=== PATIENT | female | born 1985 | race Caucasian/White ===

== ENCOUNTER 2016-06-18 21:54 | Inpatient (IN) | payer OTHER ==
[~2016-06-18] VITALS: Ht 154.9 cm; Wt 110.9 kg
[~2016-06-18 21:54] MED LIST: ADDERALL15 MG PO; ADDERALL30 MG PO; ADVIL,NUPRIN,M200 MG PO; AMOXICILLIN500 MG PO; AMPHETAMINE SAL30 MG PO; ENDOCET 5-3251 EACH PO; GABAPENTIN100 MG PO; GABAPENTIN300 MG PO; HYDROCODON-ACE1 EAC7 PO; IBUPROFEN800 MG PO; KEFLEX500 MG PO; MIRENA52 MG IY; MOBIC7.5 MG PO; MOTRIN800 MG PO; NORCO 10/3251 TABLET PO; NORCO 5/3251 TABLET PO; ONDANSETRON ODT4 MG; ORTHO TRI-CYCL1 EACH PO; OXYCODONE HCL5 MG PO; PAXIL20 MG PO; PEN-VEE K,VEET500 MG PO; PERCOCET 10/1 TABLET PO; PHENTERMINE H37.5 MG PO; PREDNISONE20 MG PO; PRENATAL VITAM1 EAC3 PO; PROMETHAZINE HC25 M1 PO; Percocet 5/325,Endoc PO; REGLAN10 MG PO; RHOGAM IM; TORADOL10 MG PO; TYLENOL REGULA325 MG PO; VENTOLIN HFA18 GM IH; VICODIN 5-3001 EACH PO; VOLTAREN 1% GE100 GM TP; Vibramycin, Doryx PO; ZITHROMAX Z-PA250 MG PO; ZOFRAN ODT4 MG PO; ZOFRAN ODT8 MG PO
[2016-06-18 22:34] LABS: MCH 26.7 PG (29.0-34.0); MCHC 31.1 G/DL (30.0-36.0); MCV 85.6 FL (83-99); MEAN PLAT.VOLUME 10.5 uM^3 (9.5-12.4); PLATELET COUNT 240 K/uL (156-360); RBC DIS.WIDTH-CV 15.8 % (11.8-14.6); RED BLOOD COUNT 5.14 M/uL (3.80-5.20); WHITE BLOOD COUNT 7.4 K/uL (4.1-10.2)
[2016-06-18 22:43] LABS: CHLORIDE 103 mEq/L (99-109); POTASSIUM 3.2 mEq/L (3.7-5.4); SODIUM 137 mEq/L (136-147)
[2016-06-18 22:45] LABS: GLUCOSE 160 mg/dL (70-99)
[2016-06-18 22:46] LABS: ANION GAP 10 MEQ/L (2-14)
[2016-06-18 22:47] LABS: TOTAL BILIRUBIN 6.2 mg/dL (0.0-1.0)
[2016-06-18 22:49] LABS: ALKALINE PHOSPHATASE 338 IU/L (3-129); GFR ESTIMATE (CALCULATED) > 59 mL/min/
[2016-06-18 22:50] LABS: UREA NITROGEN (BUN) 6 mg/dL (9-23)
[2016-06-18 22:52] LABS: LIPASE 34 U/L (1.0-51.0)
[2016-06-18 22:58] LABS: QUANTITATIVE HCG < 4.0 MIU/ML
[2016-06-18 23:08] LABS: ADD MIUA? NO; BILIRUBIN MODERATE; BLOOD NEGATIVE; COLOR AMBER ((YELLOW)); GLUCOSE (STRIP) NEGATIVE; KETONES NEGATIVE; LEUKOCYTES NEGATIVE; NITRITE NEGATIVE; PROTEIN (STRIP) NEGATIVE; SPECIFIC GRAVITY 1.018 (1.000-1.030); UCUL ADDED? NO
[2016-06-18 23:29] LABS: ICTOTEST POSITIVE
[2016-06-19] MEDS ORDERED: BUPROPION HCL75 MG PO (01:16)
[2016-06-19] MEDS ORDERED: DICLOFENAC SOD100 G1 TP (01:18)
[2016-06-19] MEDS ORDERED: TYLENOL EXTRA500 MG PO (01:19)
[2016-06-19] MEDS ORDERED: IMITREX50 MG PO ×2 (01:20→09:25)
[2016-06-19 02:21] LABS: SERUM ETHYL ALCOHOL < 10 mg/dL
[2016-06-19 02:23] LABS: DIRECT BILIRUBIN 4.9 mg/dL (0.0-0.3)
[2016-06-19 04:04] VITALS: BP 117/69
[2016-06-19 06:44] LABS: INTER. NORMALIZED RATIO 1.1; PROTHROMBIN TIME 10.7 (9.2-11.2); PTT 29.6 (25-32)
[2016-06-19 08:30] VITALS: BP 112/60
[2016-06-19 10:28] LABS: ANTI-HEPATITIS A VIRUS (IGM) Nonreactive; HAV INDEX 0.18
[2016-06-19 10:29] LABS: ANTI-HEPATITIS B CORE (IGM) Nonreactive; HBC IgM INDEX 0.11
[2016-06-19 10:30] LABS: HPCA INDEX 10.95
[2016-06-19 11:24] VITALS: BP 117/88
[2016-06-19 11:27] LABS: EOSINOPHIL (%) 5.6 % (0-5); EOSINOPHIL COUNT 0.3 K/uL (0-0.3); HEMATOCRIT 39.6 % (36.0-46.0); IMMATURE GRANULOCYTE (%) 0.4 % (0.0-0.7); INSTRUMENT ABS NEUTROPHIL CT 2.6 K/uL; LYMPHOCYTE COUNT 1.6 K/uL (1.0-2.8); MCH 27.4 PG (29.0-34.0); MCHC 31.6 G/DL (30.0-36.0); MCV 86.7 FL (83-99); MEAN PLAT.VOLUME 10.9 uM^3 (9.5-12.4); MONOCYTE (%) 10.8 % (3-12); MONOCYTE COUNT 0.6 K/uL (0-0.8); NEUTROPHIL (%) 50.7 % (45-76); NEUTROPHIL COUNT 2.6 K/uL (1.8-6.4); PLATELET COUNT 191 K/uL (156-360); RBC DIS.WIDTH-CV 16.1 % (11.8-14.6); RBC DIS.WIDTH-SD 50.3 % (39-53); RED BLOOD COUNT 4.57 M/uL (3.80-5.20); WHITE BLOOD COUNT 5.2 K/uL (4.1-10.2)
[2016-06-19 12:25] LABS: ALKALINE PHOSPHATASE 312 IU/L (3-129); ANION GAP 7 MEQ/L (2-14); CHLORIDE 104 MEQ/L (99-109); GFR ESTIMATE (CALCULATED) > 59 mL/min/; GLUCOSE 157 mg/dL (70-99); POTASSIUM 3.8 MEQ/L (3.7-5.4); SAMPLE HEMOLYSIS CHECK 0; SAMPLE ICTERIC CHECK 2; SAMPLE LIPEMIA CHECK 0; SODIUM 137 MEQ/L (136-147); TOTAL BILIRUBIN 7.2 MG/DL (0.0-1.0); UREA NITROGEN (BUN) 4 mg/dL (9-23)
[2016-06-19 12:39] LABS: AMPHETAMINES QUANT VALUE 0 NG/ML; BARBITUATES QUANT VALUE 0 NG/ML; BENZODIAZEPINES QUANT VALUE 0 NG/ML; BENZODIAZEPINES, URINE SCREEN Negative (200 ng/mL); MARIJUANA QUANT VALUE 0 NG/ML; PHENCYCLIDINE QUANT VALUE 0 NG/ML
[2016-06-19 15:28] VITALS: BP 97/55
[2016-06-19 23:27] VITALS: BP 112/71
[2016-06-20 05:11] LABS: EOSINOPHIL (%) 4.7 % (0-5); EOSINOPHIL COUNT 0.3 K/uL (0-0.3); HEMATOCRIT 37.1 % (36.0-46.0); IMMATURE GRANULOCYTE (%) 0.6 % (0.0-0.7); INSTRUMENT ABS NEUTROPHIL CT 2.4 K/uL; LYMPHOCYTE COUNT 2.1 K/uL (1.0-2.8); MCH 26.9 PG (29.0-34.0); MCV 86.9 FL (83-99); MEAN PLAT.VOLUME 11.1 uM^3 (9.5-12.4); MONOCYTE (%) 9.3 % (3-12); MONOCYTE COUNT 0.5 K/uL (0-0.8); NEUTROPHIL (%) 45.1 % (45-76); NEUTROPHIL COUNT 2.4 K/uL (1.8-6.4); PLATELET COUNT 174 K/uL (156-360); RBC DIS.WIDTH-CV 16.3 % (11.8-14.6); RED BLOOD COUNT 4.27 M/uL (3.80-5.20); WHITE BLOOD COUNT 5.4 K/uL (4.1-10.2)
[2016-06-20 05:26] LABS: INTER. NORMALIZED RATIO 1.1; PROTHROMBIN TIME 10.9 (9.2-11.2)
[2016-06-20 05:39] LABS: ALKALINE PHOSPHATASE 249 IU/L (3-129); ANION GAP 5 MEQ/L (2-14); CHLORIDE 105 MEQ/L (99-109); DIRECT BILIRUBIN 5.1 mg/dL (0.0-0.3); GFR ESTIMATE (CALCULATED) > 59 mL/min/; GLUCOSE 122 mg/dL (70-99); POTASSIUM 3.8 MEQ/L (3.7-5.4); SAMPLE HEMOLYSIS CHECK 0; SAMPLE ICTERIC CHECK 2; SAMPLE LIPEMIA CHECK 0; SODIUM 139 MEQ/L (136-147); UREA NITROGEN (BUN) 4 mg/dL (9-23)
[2016-06-20 08:16] VITALS: BP 112/70
[2016-06-20 12:16] LABS: Estimated Average Glucose 131 mg/dL (70-123); HEMOGLOBIN A1c (GLYCOHEMOGLOB) 6.2 % HGB (Below 5.7)
[2016-06-20 15:21] VITALS: BP 113/71
[2016-06-20 23:32] VITALS: BP 113/72
[2016-06-21 05:28] LABS: HEMATOCRIT 39.8 % (36.0-46.0); MCH 27.1 PG (29.0-34.0); MCHC 31.2 G/DL (30.0-36.0); MCV 86.9 FL (83-99); MEAN PLAT.VOLUME 11.6 uM^3 (9.5-12.4); PLATELET COUNT 183 K/uL (156-360); RBC DIS.WIDTH-CV 16.7 % (11.8-14.6); RBC DIS.WIDTH-SD 53.2 % (39-53); RED BLOOD COUNT 4.58 M/uL (3.80-5.20); WHITE BLOOD COUNT 6.4 K/uL (4.1-10.2)
[2016-06-21 05:41] LABS: ALKALINE PHOSPHATASE 267 IU/L (3-129); ANION GAP 8 MEQ/L (2-14); CHLORIDE 102 MEQ/L (99-109); GFR ESTIMATE (CALCULATED) > 59 mL/min/; GLUCOSE 123 mg/dL (70-99); NON-HDL CHOLESTEROL 181 mg/dL (Desirable<160); POTASSIUM 4.2 MEQ/L (3.7-5.4); SAMPLE HEMOLYSIS CHECK 0; SAMPLE ICTERIC CHECK 2; SAMPLE LIPEMIA CHECK 0; SODIUM 138 MEQ/L (136-147); TOTAL CHOLESTEROL 186 mg/dL (Desirable<200); TRIGLYCERIDES 450 MG/DL (Normal: <150); UREA NITROGEN (BUN) 5 mg/dL (9-23)
[2016-06-21 05:51] LABS: HDL CHOLESTEROL 5 MG/DL (Desirable>=50)
[2016-06-21 07:25] VITALS: BP 114/66
[2016-06-21 15:17] VITALS: BP 116/76
[2016-06-21 16:46] LABS: ALPHA-1-ANTITRYPSIN+ 210 mg/dL (83-199)
[2016-06-21 18:33] LABS: ANTI-SMOOTH MUSCLE (Actin)+ <20 U (<20); MITOCHONDRIAL (M2) ANTIBODIES+ <=20.0 U (<=20.0)
[2016-06-22 00:09] VITALS: BP 122/76
[2016-06-22 07:11] VITALS: BP 113/64
[2016-06-22 08:30] LABS: HCV RNA (LOG IU/mL) 6.32 (<1.18)
[2016-06-22] MEDS ORDERED: REGLAN5 MG PO (09:40)
== END 2016-06-22 13:36 | disposition home or self-care (01) | DRG 442 ==
LOC: RME 21:54 → EME 21:54 → EDOF 06-19 03:05 → 3EAST 06-19 03:05
PROVIDERS: Hospitalist; Internal Medicine; Internal Medicine Gastroenterology
DX: B17.10 Acute hepatitis C without hepatic coma (principal); K70.10 Alcoholic hepatitis without ascites; J45.909 Unspecified asthma, uncomplicated; G89.29 Other chronic pain; F32.9 Major depressive disorder, single episode, unspecified; M79.7 Fibromyalgia; G43.909 Migraine, unspecified, not intractable, without status migrainosus; F17.200 Nicotine dependence, unspecified, uncomplicated; E66.01 Morbid (severe) obesity due to excess calories; E87.6 Hypokalemia; R73.9 Hyperglycemia, unspecified; E78.5 Hyperlipidemia, unspecified; F14.10 Cocaine abuse, uncomplicated; F11.10 Opioid abuse, uncomplicated; Z91.410 Personal history of adult physical and sexual abuse; Z68.42 Body mass index [BMI] 45.0-49.9, adult
CPT/HCPCS: 74177; 80053; 80061; 80074; 80306 90; 81003; 82103 90; 82248; 82390; 82728; 83036; 83516 90; 83690; 84702; 85025; 85027; 85610; 85651; 85730; 86038; 86256 90; 87177; 87522 90; 99202; 99281; 99285; G0480; J1885; J2270; J2405; J2765; J3010; J7030; S0028

== ENCOUNTER 2016-10-05 10:47 | Emergency (ER) | payer OTHER ==
[~2016-10-05] VITALS: Ht 157.5 cm; Wt 104.5 kg
[~2016-10-05 10:47] MED LIST changes: +BUPROPION HCL75 MG PO; +DICLOFENAC SOD100 G1 TP; +IMITREX50 MG PO; +REGLAN5 MG PO; +TYLENOL EXTRA500 MG PO
[2016-10-05 13:15] VITALS: BP 102/82
== END 2016-10-05 13:16 | disposition home or self-care (01) ==
LOC: EME 10:47
DX: S00.83XA Contusion of other part of head, initial encounter (principal); S70.02XA Contusion of left hip, initial encounter; Y04.8XXA Assault by other bodily force, initial encounter; Y07.03 Male partner, perpetrator of maltreatment and neglect; M79.7 Fibromyalgia; J45.909 Unspecified asthma, uncomplicated; F17.200 Nicotine dependence, unspecified, uncomplicated
CPT/HCPCS: 73502; 99281; 99284

== ENCOUNTER 2017-01-08 13:02 | Emergency (ER) | payer OTHER ==
[~2017-01-08] VITALS: Ht 157.5 cm; Wt 99.7 kg
[2017-01-08 14:50] LABS: HEMATOCRIT 39.9 % (36.0-46.0); MCH 27.2 PG (29.0-34.0); MCHC 32.1 G/DL (30.0-36.0); MCV 84.7 FL (83-99); MEAN PLAT.VOLUME 9.8 uM^3 (9.5-12.4); PLATELET COUNT 362 K/uL (156-360); RBC DIS.WIDTH-CV 13.6 % (11.8-14.6); RBC DIS.WIDTH-SD 42.1 % (39-53); RED BLOOD COUNT 4.71 M/uL (3.80-5.20); WHITE BLOOD COUNT 12.4 K/uL (4.1-10.2)
[2017-01-08 15:02] LABS: CHLORIDE 103 mEq/L (99-109); SODIUM 138 mEq/L (136-147)
[2017-01-08 15:05] LABS: GLUCOSE 96 mg/dL (70-99)
[2017-01-08 15:06] LABS: ANION GAP 11 MEQ/L (2-14)
[2017-01-08 15:07] LABS: TOTAL BILIRUBIN 0.5 mg/dL (0.0-1.0)
[2017-01-08 15:08] LABS: ALKALINE PHOSPHATASE 107 IU/L (3-129); GFR ESTIMATE (CALCULATED) > 59 mL/min/
[2017-01-08 15:09] LABS: UREA NITROGEN (BUN) 10 mg/dL (9-23)
[2017-01-08 15:17] LABS: QUANTITATIVE HCG < 4.0 MIU/ML
[2017-01-08] MEDS ORDERED: TRAMADOL HCL50 MG PO (15:29)
[2017-01-08] MEDS ORDERED: LEVAQUIN750 MG PO (15:29)
[2017-01-08] MEDS ORDERED: MOTRIN600 MG PO (15:30)
[2017-01-08] MEDS ORDERED: TYLENOL WITH C1 EACH PO (15:38)
[2017-01-08 15:40] VITALS: BP 98/66
== END 2017-01-08 15:48 | disposition home or self-care (01) ==
LOC: EME 13:02
PROVIDERS: Physician Assistant
DX: J18.9 Pneumonia, unspecified organism (principal); F17.200 Nicotine dependence, unspecified, uncomplicated; J45.909 Unspecified asthma, uncomplicated; F32.9 Major depressive disorder, single episode, unspecified; M79.7 Fibromyalgia
CPT/HCPCS: 71020; 80053; 84702; 85027; 85379; 93005; 99281; 99285; J3010

== ENCOUNTER 2017-02-24 08:19 | Emergency (ER) | payer OTHER ==
[~2017-02-24] VITALS: Ht 157.5 cm; Wt 108.1 kg
[~2017-02-24 08:19] MED LIST changes: +LEVAQUIN750 MG PO; +MOTRIN600 MG PO; +TRAMADOL HCL50 MG PO; +TYLENOL WITH C1 EACH PO
[2017-02-24 09:33] LABS: HEMATOCRIT 36.6 % (36.0-46.0); HEMOGLOBIN 11.9 G/DL (11.9-15.5); MCH 27.3 PG (29.0-34.0); MCHC 32.5 G/DL (30.0-36.0); MCV 83.9 FL (83-99); PLATELET COUNT 247 K/uL (156-360); RBC DIS.WIDTH-CV 14.3 % (11.8-14.6); RBC DIS.WIDTH-SD 44.1 % (39-53); RED BLOOD COUNT 4.36 M/uL (3.80-5.20); WHITE BLOOD COUNT 14.6 K/uL (4.1-10.2)
[2017-02-24 09:45] LABS: CHLORIDE 102 mEq/L (99-109); POTASSIUM 3.6 mEq/L (3.7-5.4); SODIUM 135 mEq/L (136-147)
[2017-02-24 09:47] LABS: GLUCOSE 125 mg/dL (70-99)
[2017-02-24 09:51] LABS: CREATININE 0.8 mg/dL (0.6-1.3); GFR ESTIMATE (CALCULATED) > 59 mL/min/
[2017-02-24 09:52] LABS: UREA NITROGEN (BUN) 9 mg/dL (9-23)
[2017-02-24 09:56] LABS: TROP-I INTERPRETATION NEGATIVE; TROPONIN-I < 0.01 ng/mL (0.0-0.30)
[2017-02-24 09:59] LABS: QUANTITATIVE HCG < 4.0 MIU/ML
[2017-02-24] MEDS ORDERED: ZOFRAN ODT4 MG PO (11:15)
[2017-02-24] MEDS ORDERED: NARCAN4 MG NS (11:21)
[2017-02-24 12:04] VITALS: BP 101/58
== END 2017-02-24 12:18 | disposition home or self-care (01) ==
LOC: EME 08:19
PROVIDERS: Nurse Practitioner Family
DX: T40.1X1A Poisoning by heroin, accidental (unintentional), initial encounter (principal); F14.10 Cocaine abuse, uncomplicated; R00.0 Tachycardia, unspecified; R11.2 Nausea with vomiting, unspecified; F17.200 Nicotine dependence, unspecified, uncomplicated; Z91.018 Allergy to other foods; J45.909 Unspecified asthma, uncomplicated; M79.7 Fibromyalgia
CPT/HCPCS: 71020; 80048; 84484; 84702; 85027; 93005; 99281; 99285; J2310; J2405; J7030

== ENCOUNTER 2017-05-12 23:19 | Emergency (ER) | payer OTHER ==
[~2017-05-12] VITALS: Ht 157.5 cm; Wt 102.5 kg
[~2017-05-12 23:19] MED LIST changes: +NARCAN4 MG NS
[2017-05-13 02:02] VITALS: BP 103/57
== END 2017-05-13 02:04 | disposition home or self-care (01) ==
LOC: EME → EDBD 23:19 → EME 05-13 02:04
DX: T40.1X1A Poisoning by heroin, accidental (unintentional), initial encounter (principal); J45.909 Unspecified asthma, uncomplicated; F32.9 Major depressive disorder, single episode, unspecified; M79.7 Fibromyalgia; G43.909 Migraine, unspecified, not intractable, without status migrainosus; Z72.0 Tobacco use
CPT/HCPCS: 99281; 99284; J2310

== ENCOUNTER 2017-06-08 05:18 | Emergency (ER) | payer OTHER ==
[~2017-06-08] VITALS: Ht 157.5 cm; Wt 103.6 kg
[2017-06-08] MEDS ORDERED: NARCAN4 MG NS (06:38)
[2017-06-08] MEDS ORDERED: EVZIO0.4 MG/0.4 IM (06:38)
[2017-06-08 06:43] VITALS: BP 123/88
== END 2017-06-08 06:25 | disposition home or self-care (01) ==
LOC: EME → EDBD 05:18 → EME 06:25
DX: T40.1X1A Poisoning by heroin, accidental (unintentional), initial encounter (principal); J45.909 Unspecified asthma, uncomplicated; M79.7 Fibromyalgia; G43.909 Migraine, unspecified, not intractable, without status migrainosus; F32.9 Major depressive disorder, single episode, unspecified; F17.200 Nicotine dependence, unspecified, uncomplicated; Z98.51 Tubal ligation status; Z91.018 Allergy to other foods
CPT/HCPCS: 99281; 99285; J2310; J2405; J2765